=== PATIENT | male | born 2000 | race Caucasian/White ===

== ENCOUNTER 2024-02-22 18:53 | Emergency (ER) | payer SELFPAY ==
[~2024-02-22] VITALS: Ht 167.6 cm; Wt 68.0 kg
[2024-02-22 21:22] VITALS: BP 131/80; TEMP 97.6; O2SAT 99
== END 2024-02-22 21:22 | disposition home or self-care (01) ==
LOC: ER 18:58
DX: F10.129 Alcohol abuse with intoxication, unspecified (principal); Y90.9 Presence of alcohol in blood, level not specified
CPT/HCPCS: 82962-TC